=== PATIENT | female | born 1985 | race Caucasian/White ===

== ENCOUNTER → 2016-07-22 | Outpatient (CLI) | payer OTHER | LOC: RAD 11:50 | DX: R05 Cough (principal); M54.9 Dorsalgia, unspecified; M54.2 Cervicalgia; M51.36 Other intervertebral disc degeneration, lumbar region; Z88.0 Allergy status to penicillin; Z88.1 Allergy status to other antibiotic agents | CPT/HCPCS: 71020; 72050; 72072; 72110 ==